=== PATIENT | male | born 1970 | race African-American/Black ===

== ENCOUNTER 2016-06-19 08:00 | Emergency (ER) | payer BC ==
[~2016-06-19] VITALS: Ht 170.2 cm; Wt 100.0 kg
[~2016-06-19 08:00] MED LIST: ASPI325T PO; ENAL5TAB PO; METO25 PO; PRAV10 PO
[2016-06-19 08:02] VITALS: BP 176/110; PULSE 94; RESP 20; TEMP 98.7; O2SAT 99
[2016-06-19] MEDS ORDERED: SODIUM CHLOR 0.9% 1000 ML INJ 1,000 ML IV SCH (08:14)
[2016-06-19] MEDS ORDERED: SODIUM CHLORIDE 0.9% FLUSH 10 ML FLUSH IV FLUSH PRN (08:15)
[2016-06-19] MEDS ORDERED: ONDANSETRON HCL 4 MG/2 ML VIAL IVP ONE (08:15)
[2016-06-19] MEDS ORDERED: PANTOPRAZOLE SODIUM 40 MG VIAL IVP ONE (08:15)
--- NOTE | 2016-06-19 08:28 | PD ---
HPI Chief Complaint: GI Complaint Time Seen by Provider: 08:25 Travel History International Travel<30 days: No Contact w/Intl Traveler<30days: No Traveled to known affect area: No History of Present Illness HPI 46-year-old male with history of previous CAD, [place], hypertension, presents to the ER today for 2 days history of epigastric abdominal discomfort which he states happens in the mornings and 2 episodes of vomiting small amounts of blood. He states that it settles down during the day and he is not having any pain currently. He denies any diarrhea, black stools, fevers, coughing, shortness of breath, or any other symptoms. He denies any previous episodes of this. Modifying Factors: None Associated Signs & Symptoms: Epigastric abdominal pain with vomiting up small amounts of blood Risk Factors: None PFSH Past Medical History Arthritis: Yes (BACK AND NECK) Cardiac Catheterization: Yes Cardiovascular Problems: Yes (htn, [place]) High Cholesterol: Yes Chest Pain: Yes Coronary Artery Disease: Yes Diminished Hearing: No Gastrointestinal Disorders: No Hypertension: Yes Implanted Vascular Access Dvce: No Musculoskeletal: Yes Immunizations Current: Yes Myocardial Infarction: Yes Past Surgical History Cardiac Surgery: Yes (CABG 2009) Coronary Artery Bypass Graft: Yes (x 3 2009) Thoracic Surgery: Yes (CABG 2009) Other Surgery: Yes (CARDIAC) Social History Alcohol Use: Yes (OCCASIONALLY) Tobacco Use: No Substance Use: No Allergies-Medications (Allergen,Severity, Reaction): Coded Allergies: Milk (Verified Allergy, Severe, Nausea/Vomiting, 06/19/16) Shellfish (Verified Allergy, Severe, Anaphylaxis, 06/19/16) Reported Meds & Prescriptions Reported Meds & Active Scripts Active Reported Metoprolol Tartrate 25 mg (Metoprolol Tartrate) 25 Mg Tab 25 Mg PO BID Aspirin 325 mg (Aspirin) 325 Mg Tab 325 Mg PO DAILY Pravastatin Sodium 10 Mg Tab 1 Tab PO HS Enalapril Maleate 5 Mg Tab 5 Mg PO BID Review of Systems Except as stated in HPI: all other systems reviewed are Neg Physical Exam Narrative GENERAL: Well-developed middle age -[place] male patient currently in no significant distress. Awake and oriented 3. SKIN: Focused skin assessment warm/dry. HEAD: Atraumatic. Normocephalic. EYES: Pupils equal and round. No scleral icterus. No injection or drainage. ENT: No nasal bleeding or discharge. Mucous membranes pink and moist. NECK: Trachea midline. No JVD. CARDIOVASCULAR: Regular rate and rhythm. No murmur appreciated. RESPIRATORY: No accessory muscle use. Clear to auscultation. Breath sounds equal bilaterally. GASTROINTESTINAL: Abdomen soft, non-tender, nondistended. Hepatic and splenic margins not palpable. MUSCULOSKELETAL: No obvious deformities. No clubbing. No cyanosis. No edema. NEUROLOGICAL: Awake and alert. No obvious cranial nerve deficits. Motor grossly within normal limits. Normal speech. PSYCHIATRIC: Appropriate mood and affect; insight and judgment normal. Data Data Last Documented VS Vital Signs Date Time Temp Pulse Resp B/P Pulse Ox O2 Delivery O2 Flow Rate FiO2 06/19/16 08:48 90 18 149/111 97 Room Air 06/19/16 08:02 98.7 Orders Complete Blood Count With Diff (06/19/16 08:14) Comprehensive Metabolic Panel (06/19/16 08:14) Lipase (06/19/16 08:14) Prothrombin Time / Inr (Pt) (06/19/16 08:14) Act Partial Throm Time (Ptt) (06/19/16 08:14) Iv Access Insert/Monitor (06/19/16 08:14) Ecg Monitoring (06/19/16 08:14) Oximetry (06/19/16 08:14) Ondansetron Inj (Zofran Inj) (06/19/16 08:15) Pantoprazole Inj (Protonix Inj) (06/19/16 08:15) Sodium Chlor 0.9% 1000 Ml Inj (Ns 1000 M (06/19/16 08:14) Sodium Chloride 0.9% Flush (Ns Flush) (06/19/16 08:15) Electrocardiogram (06/19/16 08:25) Ckmb (Isoenzyme) Profile (06/19/16 08:25) Troponin I (06/19/16 08:25) Chest, Single Ap (06/19/16 08:28) CKMB (06/19/16 08:30) CKMB% (06/19/16 08:30) Labs Laboratory Tests Test 06/19/16 08:30 White Blood Count 7.0 TH/MM3 Red Blood Count 4.89 MIL/MM3 Hemoglobin 14.9 GM/DL Hematocrit 45.7 % Mean Corpuscular Volume 93.4 FL Mean Corpuscular Hemoglobin 30.5 PG Mean Corpuscular Hemoglobin 32.6 % Concent Red Cell Distribution Width 14.6 % Platelet Count 314 TH/MM3 Mean Platelet Volume 7.1 FL Neutrophils (%) (Auto) 69.3 % Lymphocytes (%) (Auto) 20.8 % Monocytes (%) (Auto) 6.8 % Eosinophils (%) (Auto) 2.3 % Basophils (%) (Auto) 0.8 % Neutrophils # (Auto) 4.9 TH/MM3 Lymphocytes # (Auto) 1.5 TH/MM3 Monocytes # (Auto) 0.5 TH/MM3 Eosinophils # (Auto) 0.2 TH/MM3 Basophils # (Auto) 0.1 TH/MM3 CBC Comment DIFF FINAL Differential Comment Prothrombin Time 10.7 SEC Prothromb Time International 1.0 RATIO Ratio Activated Partial 28.2 SEC Thromboplast Time Sodium Level 137 MEQ/L Potassium Level 4.1 MEQ/L Chloride Level 105 MEQ/L Carbon Dioxide Level 25.1 MEQ/L Anion Gap 7 MEQ/L Blood Urea Nitrogen 9 MG/DL Creatinine 1.06 MG/DL Estimat Glomerular Filtration 92 ML/MIN Rate Random Glucose 103 MG/DL Calcium Level 9.0 MG/DL Total Bilirubin 0.5 MG/DL Aspartate Amino Transf 27 U/L (AST/SGOT) Alanine Aminotransferase 35 U/L (ALT/SGPT) Alkaline Phosphatase 81 U/L Total Creatine Kinase 453 U/L Creatine Kinase MB 2.3 NG/ML Creatine Kinase MB % 0.5 % Troponin I LESS THAN 0.02 NG/ML Total Protein 8.6 GM/DL Albumin 4.1 GM/DL Lipase 151 U/L MDM Medical Decision Making Medical Screen Exam Complete: Yes Emergency Medical Condition: Yes Medical Record Reviewed: Yes Interpretation(s) EKG shows sinus rhythm at a rate of 80 bpm with a right bundle branch block pattern. Unchanged from previous EKG on record. Laboratory Tests Test 06/19/16 08:30 Total Creatine Kinase 453 U/L (39-308) Troponin I LESS THAN 0.02 NG/ML (0.02-0.05) Total Protein 8.6 GM/DL (6.4-8.2) Last 24 hours Impressions Chest X-Ray 06/19/16827 Signed Impressions: Service Date/Time: Sunday, June 19, 2016 08:42 - CONCLUSION: No acute disease. Bryan Pereira Jr., MD Differential Diagnosis Epigastric discomfort, vomiting up small amounts of bloodgastritis versus gastric ulcer versus pancreatitis versus ACS Narrative Course On further questioning, he states that it is streaks of blood and not full coffee grounds or cups of blood. Abdomen is fairly benign and I do not suspect an acute intra-abdominal process. EKG did not show any signs of acute changes in symptoms or more indicative of a GI issues rather than cardiac issue. At this point, I suspect he may have some underlying gastric ulcer or gastritis causing symptoms. However, GI bleed cannot be ruled out. He has stable vital signs and a normal H&H. At this point, I would recommend that he follows up with GI for further evaluation and treatment. We will put him on acid blocking medications. Return for any worsening in vomiting, bleeding, or new symptoms as needed. The plan has been discussed with him and he states understanding. Diagnosis Primary Impression: Vomiting blood Additional Impression: Gastritis Med/Other Pt SpecificInfo: Prescription(s) given Scripts Ondansetron Odt (Zofran Odt)4 Mg Tab4 Mg SL Q6HR PRN (Nausea/Vomiting) #7 TAB Ref 0 Prov:Carlyle Lowe MD 06/19/16 Pantoprazole (Protonix)40 Mg Tab40 Mg PO DAILY #30 TAB Ref 0 Prov:Carlyle Lowe MD 06/19/16 Disposition: 01 DISCHARGE HOME Condition: Stable Carlyle Lowe MD June 19, 2016 08:28
[2016-06-19 08:35] LABS: AUTOMATED NEUTROPHIL # 4.9 TH/MM3 (1.8-7.7); BASOPHIL # 0.1 TH/MM3 (0-0.2); BASOPHIL % 0.8 % (0.0-2.0); EOSINOPHIL # 0.2 TH/MM3 (0-0.4); EOSINOPHIL % 2.3 % (0.0-4.0); HEMATOCRIT 45.7 % (39.0-51.0); HEMO FLAGS DIFF FINAL; LYMPH % 20.8 % (9.0-44.0); LYMPHOCYTE # 1.5 TH/MM3 (1.0-4.8); MEAN CELL VOLUME 93.4 FL (80.0-100.0); MEAN CORPUSCULAR HEMOGLOBIN 30.5 PG (27.0-34.0); MEAN CORPUSCULAR HGB CONC 32.6 % (32.0-36.0); MONO % 6.8 % (0.0-8.0); NEUT % 69.3 % (16.0-70.0); PLATELET COUNT 314 TH/MM3 (150-450); RED BLOOD COUNT 4.89 MIL/MM3 (4.50-5.90); RED CELL DISTRIBUTION WIDTH 14.6 % (11.6-17.2)
[2016-06-19 08:43] LABS: APTT (PATIENT) 28.2 SEC (24.3-30.1); PROTHROMBIN TIME - PATIENT 10.7 SEC (9.8-11.6)
[2016-06-19 08:48] VITALS: BP 149/111; PULSE 90; RESP 18; O2SAT 97
[2016-06-19 08:53] LABS: ANION GAP 7 MEQ/L (5-15); AST (GOT) 27 U/L (15-37); BICARBONATE 25.1 MEQ/L (21.0-32.0); BLOOD UREA NITROGEN 9 MG/DL (7-18); CHLORIDE 105 MEQ/L (98-107); GLOMERULAR FILTRATION RATE 92 ML/MIN (>89); POTASSIUM 4.1 MEQ/L (3.5-5.1); SODIUM (NA) 137 MEQ/L (136-145)
[2016-06-19 08:56] LABS: ALKALINE PHOSPHATASE 81 U/L (45-117); ALT (GPT) 35 U/L (12-78); TOTAL BILIRUBIN ADULT 0.5 MG/DL (0.2-1.0)
--- NOTE | 2016-06-19 09:20 | RADRPT ---
EXAM DATE/TIME: 06/19/2016 08:42 [facility] COMPARISON: CHEST SINGLE AP, January 14, 2015, 10:33. INDICATIONS : Patient states chest tightness after vomiting. MEDICAL HISTORY : Hypertension. Hypercholesterolemia. SURGICAL HISTORY : CABG. ENCOUNTER: Initial ACUITY: 1 day PAIN SCORE: 3/10 LOCATION: Bilateral chest FINDINGS: A single view of the chest demonstrates the lungs to be symmetrically aerated without evidence of mas s, infiltrate or effusion. The cardiomediastinal contours are unremarkable. Osseous structures are intact. Median sternotomy wires and coronary markers. CONCLUSION: No acute disease. Bryan Pereira Jr., MD on June 19, 2016 at 9:17 Board Certified Radiologist. This report was verified electronically.
[2016-06-19 09:22] LABS: CREATINE KINASE 453 U/L (39-308)
[2016-06-19 09:34] LABS: CKMB 2.3 NG/ML (0.5-3.6)
[2016-06-19] MEDS ORDERED: ZOFR4TAB3 SL (09:53)
[2016-06-19] MEDS ORDERED: PROT40TA PO (09:53)
[2016-06-19 10:06] VITALS: BP 148/98
--- NOTE | 2016-06-19 14:42 | EKG ---
Date Performed: 06/19/2016 Time Performed: 08:32:36 PTAGE: 46 years EKG: Sinus rhythm LEFT ATRIAL ENLARGEMENT RIGHT BUNDLE BRANCH BLOCK Compared to prior tracing no significant change AB NORMAL ECG PREVIOUS TRACING 01/14/15 @09.52.42 DOCTOR: Jw Duarte Interpretating Date/Time 06/19/2016 14:40:00
== END 2016-06-19 10:08 | disposition home or self-care (01) ==
LOC: NEPE 08:00
DX: K92.0 Hematemesis (principal); K29.70 Gastritis, unspecified, without bleeding; I10 Essential (primary) hypertension; I45.10 Unspecified right bundle-branch block; I25.10 Atherosclerotic heart disease of native coronary artery without angina pectoris; I25.2 Old myocardial infarction; Z95.1 Presence of aortocoronary bypass graft
CPT/HCPCS: 71010; 80053; 82550; 82552; 83690; 84484; 85025; 85610; 85730; 93005; 96361; 96374; 96375; 99285; C9113; J2405; J7030

== ENCOUNTER 2016-09-25 09:56 | Emergency (ER) | payer BC ==
[~2016-09-25 09:56] MED LIST changes: +PROT40TA PO; +ZOFR4TAB3 SL
[2016-09-25 10:03] VITALS: BP 160/103; PULSE 90; RESP 20; TEMP 98; O2SAT 98
[2016-09-25] MEDS ORDERED: BP MED (10:07)
[2016-09-25] MEDS ORDERED: BACT800T5 PO (10:38)
--- NOTE | 2016-09-25 10:44 | PD ---
HPI Chief Complaint: Skin Problem Time Seen by Provider: 10:08 Travel History International Travel<30 days: No Contact w/Intl Traveler<30days: No Traveled to known affect area: No History of Present Illness HPI This patient complains of an infected lesion on his right forearm. Duration 3 days. Severity is moderate. No drainage or fever. PFSH Past Medical History Arthritis: Yes (BACK AND NECK) Cardiac Catheterization: Yes Cardiovascular Problems: Yes (htn, [place]) High Cholesterol: Yes Chest Pain: Yes Coronary Artery Disease: Yes Diminished Hearing: No Gastrointestinal Disorders: No Hypertension: Yes Implanted Vascular Access Dvce: No Musculoskeletal: Yes Immunizations Current: Yes Myocardial Infarction: Yes Past Surgical History Cardiac Surgery: Yes (CABG 2009) Coronary Artery Bypass Graft: Yes (x 3 2009) Thoracic Surgery: Yes (CABG 2009) Other Surgery: Yes (CARDIAC) Social History Alcohol Use: No Tobacco Use: No Substance Use: No Allergies-Medications (Allergen,Severity, Reaction): Coded Allergies: milk (Unverified Allergy, Severe, Nausea/Vomiting, 09/25/16) shellfish derived (Unverified Allergy, Severe, Anaphylaxis, 09/25/16) Reported Meds & Prescriptions Reported Meds & Active Scripts Active Bactrim DS (Sulfamethoxazole-Trimethoprim) 800-160 Mg Tab 1 Tab PO BID Reported [Bp Med] Review of Systems General / Constitutional: No: Fever HENT: No: Headaches Cardiovascular: No: Chest Pain or Discomfort Physical Exam Narrative Psych: Normal mood and affect. Normal insight and judgment. SKIN: Focused skin assessment reveals no rash or ulcers. Skin is warm and dry. Palpation shows no induration. Pustule as below Right arm: Patient has a well-circumscribed 1 cm diameter pustule. There is a black central core. This is an infected epidermoid cyst Data Data Last Documented VS Vital Signs Date Time Temp Pulse Resp B/P (MAP) Pulse Ox O2 Delivery O2 Flow Rate FiO2 09/25/16 10:03 98.0 90 20 160/103 (122) 98 Orders Orders Wound Culture And Gram Stain (09/25/16 10:36) MDM Medical Decision Making Medical Screen Exam Complete: Yes Emergency Medical Condition: Yes Medical Record Reviewed: Yes Differential Diagnosis Cyst, boil, abscess Narrative Course I have reviewed the patient's electronic medical record. This patient has an infected epidermoid cyst in the right forearm. He gives verbal consent for I&D Procedure note: I prepped the area in his right forearm for incision and drainage. I used ethyl chloride spray for anesthesia. I opened it up with a 11 blade scalpel. I drained some thick yellow pus. I obtained a wound culture and Gram stain. Tolerated well. I use the end of hemostat to break up loculations. Dressing applied One week of Bactrim DS prescribed Recommend primary care or dermatology follow-up Diagnosis Primary Impression: Infected epidermoid cyst Additional Instructions: Follow-up with primary care or dermatology Med/Other Pt SpecificInfo: Prescription(s) given Scripts Sulfamethoxazole-Trimethoprim (Bactrim DS) 800-160 Mg Tab 1 TAB PO BID for Infection, #14 TAB 0 Refills Prov: Zaid Grubbs MD 09/25/16 Disposition: 01 DISCHARGE HOME Condition: Stable Zaid Grubbs MD Sep 25, 2016 10:44
== END 2016-09-25 11:01 | disposition home or self-care (01) ==
LOC: PHEFT 09:56
DX: L72.0 Epidermal cyst (principal); L08.9 Local infection of the skin and subcutaneous tissue, unspecified; B95.7 Other staphylococcus as the cause of diseases classified elsewhere
CPT/HCPCS: 10060; 86403; 87070

== ENCOUNTER 2017-06-03 20:35 | Emergency (ER) | payer SELFPAY ==
[~2017-06-03] VITALS: Ht 167.6 cm; Wt 100.0 kg
[~2017-06-03 20:35] MED LIST changes: -ASPI325T PO; +BACT800T5 PO; +BP MED; -ENAL5TAB PO; -METO25 PO; -PRAV10 PO; -PROT40TA PO; -ZOFR4TAB3 SL
[2017-06-03 20:54] VITALS: BP 141/77; PULSE 95; RESP 18; TEMP 98.3; O2SAT 99
[2017-06-03] MEDS ORDERED: ENAL2.5T PO (21:10)
--- NOTE | 2017-06-03 21:32 | PD ---
HPI Chief Complaint: Anxiety Time Seen by Provider: 21:09 Travel History International Travel<30 days: No Contact w/Intl Traveler<30days: No Traveled to known affect area: No History of Present Illness HPI 47-year-old male with history of hypertension, hypercholesterolemia, CAD, CABG, here for evaluation mainly because he states his family suggested that he be evaluated. His from cancer on the of this month, and since this time he has been under a lot of stress with regards to making arrangements as well as taking care of his grandchildren as well as his job. Because of this he has had little to sleep over the last several days. His family is concerned about him they do not believe that he should go to work, therefore instead of going to work tonight he is here for evaluation. He denies suicidal or homicidal ideation. He denies illicit drug use. He states that the stress has caused him to drink a little more alcohol than usual, and he had 3 beers today. He denies any physical symptoms. No chest pain or dyspnea. No abdominal pain. PFSH Past Medical History Arthritis: Yes (BACK AND NECK) Cardiac Catheterization: Yes Cardiovascular Problems: Yes (htn, [place]) High Cholesterol: Yes Chest Pain: Yes Coronary Artery Disease: Yes Diminished Hearing: No Gastrointestinal Disorders: No Hypertension: Yes Implanted Vascular Access Dvce: No Musculoskeletal: Yes Immunizations Current: Yes Myocardial Infarction: Yes Tetanus Vaccination: < 5 Years Influenza Vaccination: No Past Surgical History Cardiac Surgery: Yes (CABG 2009) Coronary Artery Bypass Graft: Yes (x 3 2009) Thoracic Surgery: Yes (CABG 2009) Other Surgery: Yes (CARDIAC) Social History Alcohol Use: Yes (occasionally) Tobacco Use: No Substance Use: No Allergies-Medications (Allergen,Severity, Reaction): Coded Allergies: milk (Unverified Allergy, Severe, Nausea/Vomiting, 06/03/17) shellfish derived (Unverified Allergy, Severe, Anaphylaxis, 06/03/17) Reported Meds & Prescriptions Reported Meds & Active Scripts Active Reported Enalapril (Enalapril Maleate) 2.5 Mg Tab Unknown Dose PO BID [Bp Med] Review of Systems Except as stated in HPI: all other systems reviewed are Neg Physical Exam Narrative GENERAL: Well-developed, well-nourished, pleasant, comfortable, no apparent distress. SKIN: Focused skin assessment warm/dry. HEAD: Atraumatic. Normocephalic. EYES: Pupils equal and round. No scleral icterus. No injection or drainage. ENT: Mucous membranes pink and moist. NECK: Trachea midline. No JVD. CARDIOVASCULAR: Regular rate and rhythm. RESPIRATORY: No accessory muscle use. Clear to auscultation. Breath sounds equal bilaterally. GASTROINTESTINAL: Abdomen soft, non-tender, nondistended. MUSCULOSKELETAL: No obvious deformities. No clubbing. No cyanosis. No edema. NEUROLOGICAL: Awake and alert. No obvious cranial nerve deficits. Motor grossly within normal limits. Normal speech. PSYCHIATRIC: Appropriate mood and affect; insight and judgment normal. Data Data Last Documented VS Vital Signs Date Time Temp Pulse Resp B/P (MAP) Pulse Ox O2 Delivery O2 Flow Rate FiO2 06/03/17 20:54 98.3 95 18 141/77 (98) 99 MDM Medical Decision Making Medical Screen Exam Complete: Yes Emergency Medical Condition: Yes Differential Diagnosis Stress, anxiety, depression, reaction disorder Narrative Course Vital signs reviewed. Patient is overall very well-appearing and has no physical complaints. He admits to being under a lot of stress lately after his on . His family is concerned about him and advised that he present to the emergency department for evaluation. There are no significant exam findings on physical exam. He denies suicidal or homicidal ideation. At this point I believe he is stable for discharge home with outpatient follow-up with a primary care physician this week. 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 He does however have insurance and I advised that he contact his insurance company for a list of primary providers whom he can make an appointment with. Medical screening exam was performed, and the patient was deemed EMCNO. This was explained to the patient and he is agreeable. He was advised on when to return to the emergency department. He is requesting a note to take off of work tonight. He verbalizes understanding and agreement with plan. Diagnosis Primary Impression: Encounter for medical screening examination Additional Impression: Stress Referrals: Tono Duff MD 3 days Psychiatrist [facility] 3 days Primary Care Physician 3 days Additional Instructions: Follow-up with a primary care physician this week. Return to the emergency department for worsening symptoms or any other concerns. Disposition: 01 DISCHARGE HOME Condition: Stable Nilo Bull MD Jun 03, 2017 21:32
== END 2017-06-03 20:45 | disposition left against medical advice (07) ==
LOC: NEPD 20:35
DX: F43.8 Other reactions to severe stress (principal); I10 Essential (primary) hypertension; I25.10 Atherosclerotic heart disease of native coronary artery without angina pectoris; E78.00 Pure hypercholesterolemia, unspecified; I25.2 Old myocardial infarction; Z95.1 Presence of aortocoronary bypass graft
CPT/HCPCS: 99281

== ENCOUNTER 2017-06-15 11:21 | Emergency (ER) | payer SELFPAY ==
[~2017-06-15] VITALS: Ht 170.2 cm; Wt 90.0 kg
[~2017-06-15 11:21] MED LIST changes: -BACT800T5 PO; +ENAL2.5T PO
[2017-06-15 11:29] VITALS: BP 154/99; PULSE 93; RESP 17; TEMP 97.3; O2SAT 98
== END 2017-06-15 12:52 | disposition left against medical advice (07) ==
LOC: NED 11:21
DX: M79.605 Pain in left leg (principal)
CPT/HCPCS: 99281

== ENCOUNTER 2017-06-16 06:34 | Emergency (ER) | payer OTHER ==
[~2017-06-16] VITALS: Ht 170.2 cm; Wt 90.9 kg
[2017-06-16 06:51] VITALS: BP 178/89; PULSE 100; RESP 16; TEMP 97.8; O2SAT 98
--- NOTE | 2017-06-16 07:27 | PD ---
HPI . Leg pain Chief Complaint: Edema Time Seen by Provider: 07:09 Travel History International Travel<30 days: No Contact w/Intl Traveler<30days: No Traveled to known affect area: No History of Present Illness HPI Patient presents with a chief complaint of left lower leg pain and swelling. Onset was 2 days ago. 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 He went to bed and awakened the next day and the swelling was gone. He believes that he "overdid it." He has had a saphenous vein dissection for CABG and also a previous left ankle injury. He believes that the pain and swelling were secondary to these things plus the long drive. Nonetheless, the symptoms resolved from sleep. He comes in now complaining with some residual soreness along the graft site. He states that the pain is not severe enough to have taken anything for it. He reports no other symptoms. He tells me that he believes that he will be fine if he just has a couple of days of light duty at work. PFSH Past Medical History Arthritis: Yes (BACK AND NECK) Cardiac Catheterization: Yes Cardiovascular Problems: Yes (htn, [place]) High Cholesterol: Yes Chest Pain: Yes Coronary Artery Disease: Yes Diminished Hearing: No Gastrointestinal Disorders: No Hypertension: Yes Implanted Vascular Access Dvce: No Musculoskeletal: Yes Immunizations Current: Yes Myocardial Infarction: Yes Past Surgical History Cardiac Surgery: Yes (CABG 2009) Coronary Artery Bypass Graft: Yes (x 3 2009) Thoracic Surgery: Yes (CABG 2009) Other Surgery: Yes (CARDIAC) Social History Alcohol Use: Yes (occasionally) Tobacco Use: No Substance Use: No Allergies-Medications (Allergen,Severity, Reaction): Coded Allergies: milk (Unverified Allergy, Severe, Nausea/Vomiting, 06/16/17) shellfish derived (Unverified Allergy, Severe, Anaphylaxis, 06/16/17) Reported Meds & Prescriptions Reported Meds & Active Scripts Active Reported Enalapril (Enalapril Maleate) 2.5 Mg Tab Unknown Dose PO BID [Bp Med] Review of Systems Except as stated in HPI: all other systems reviewed are Neg Physical Exam Narrative GENERAL: Awake and alert and in no acute distress. SKIN: Warm and dry. HEAD: Normocephalic/atraumatic. EYES: Pupils are equal. Extraocular movements are intact. NECK: Normal range of motion. CARDIOVASCULAR: Regular rate and rhythm. RESPIRATORY: Nonlabored respirations. MUSCULOSKELETAL: Left lower extremity has a saphenous vein graft scar with some mild tenderness along the scar. There is no calf tenderness. There is no swelling. There is no discoloration of the skin. NEUROLOGICAL: Nonfocal. PSYCHIATRIC: Appropriate mood and affect. Data Data Last Documented VS Vital Signs Date Time Temp Pulse Resp B/P (MAP) Pulse Ox O2 Delivery O2 Flow Rate FiO2 06/16/17 06:51 97.8 100 16 178/89 (118) 98 Room Air Orders Orders Ed Discharge Order (06/16/17 07:22) MDM Medical Decision Making Medical Screen Exam Complete: Yes Emergency Medical Condition: Yes Differential Diagnosis Differential diagnosis of leg pain includes but is not limited to lumbar radiculopathy, arthritis, myalgias, DVT. 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 His symptoms resolved with sleep. He is here requesting a note for light duty for the next 2 days. He believes that he "overdid it." His exam is reassuring. He does have the chief complaint of left leg pain and swelling but has no physical exam findings suggestive of DVT. His symptoms improved with rest. I feel comfortable discharging him to home. He is not requesting anything for pain. He just wants a note for work. Diagnosis Primary Impression: Left leg pain Patient Instructions: General Instructions Departure Forms: Work Release, Enter return to work date: June 16, 2017 Special Instructions: light duty. no long-distant driving for 2 days. Tests/Procedures Disposition: DISCHARGE HOME Condition: Stable Adelita Dee MD June 16, 2017 07:27
[2017-06-16 07:50] VITALS: BP 165/78
== END 2017-06-16 07:52 | disposition home or self-care (01) ==
LOC: NEPC 06:34
DX: M79.662 Pain in left lower leg (principal); M79.89 Other specified soft tissue disorders; I10 Essential (primary) hypertension
CPT/HCPCS: 99281